=== PATIENT | male | born 1965 | race Caucasian/White ===

== ENCOUNTER → 2020-02-26 08:55 | Outpatient (BNVA) | payer SELFPAY | PROVIDERS: Family Provider Nurse Practitioner Family; PCP Nurse Practitioner Family; Visit Provider Internal Medicine Rheumatology | DX: M05.9 Rheumatoid arthritis with rheumatoid factor, unspecified (principal); Z79.899 Other long term (current) drug therapy; M19.012 Primary osteoarthritis, left shoulder; F17.210 Nicotine dependence, cigarettes, uncomplicated; M05.741 Rheumatoid arthritis with rheumatoid factor of right hand without organ or systems involvement; M05.742 Rheumatoid arthritis with rheumatoid factor of left hand without organ or systems involvement | CPT/HCPCS: 99214 ==